=== PATIENT | male | born 1990 | race Caucasian/White ===

== ENCOUNTER 2022-07-24 13:40 | Inpatient (IN) | payer OTHER, BC, SELFPAY ==
[2022-07-24 13:55] VITALS: BMI 30.8
[2022-07-24 14:11] VITALS: BP 131/71; PULSE 65; RESP 17; TEMP 36.5; O2SAT 98
[2022-07-24] MEDS: oxyCODONE 5 MG Tablet PO ×2 (16:36→20:37)
[2022-07-24] MEDS: Gabapentin 300 MG Capsule PO (16:37)
[2022-07-24] MEDS: Acetaminophen 325 MG Tablet 650 MG PO (18:49)
[2022-07-24] MEDS: Senna/Docusate Sodium 1 Tablet 2 TABLET PO (20:38)
[2022-07-24] MEDS: Methocarbamol 750 MG Tablet 1500 MG PO (20:38)
[2022-07-24] MEDS: Enoxaparin 30 MG/0.3 ML Syringe SC (20:38)
[2022-07-24 21:18] VITALS: BP 120/67; PULSE 68; RESP 16; TEMP 36.3; O2SAT 95
[2022-07-24 21:25] VITALS: O2SAT 95
[2022-07-25] MEDS: oxyCODONE 5 MG Tablet PO ×5 (00:43→20:45)
[2022-07-25] MEDS: Methocarbamol 750 MG Tablet 1500 MG PO ×3 (05:05→22:20)
[2022-07-25 05:36] LABS: Absolute Lymphocyte Count 1.98 X10^3/uL (0.83-4.51); Absolute Neutrophil Count 4.7 X10^3/uL (2.0-7.7); Basophil# 0.03 X10^3/uL; Basophil% 0.4 % (0-1); Eosinophil# 0.12 X10^3/uL; Eosinophils% 1.5 % (0-5); Hematocrit 32.7 % (40-54); Hemoglobin 11.1 g/dL (13.0-16.5); Lymphocyte # 1.98 X10^3/ul (0.83-4.51); Lymphocyte % 24.8 % (19-41); Mean Corp Hgb Conc 33.9 g/dL (32-36); Mean Corpuscular Hgb 29.2 pg (27.0-32.0); Mean Corpuscular Volume 86.1 fL (80-94); Mean Platelet Vol. 8.2 fl (6.2-12.0); Monocyte# 0.91 X10^3/uL; Monocyte% 11.4 % (0-10); NRBC Flagged by Analyzer 0 % (0-5); Neutrophil # 4.73 X10^3/uL (2.7-7.7); Neutrophil % 59.1 % (47-70); Platelet Count 175 K/mm3 (150-450); RBC Distribution Width CV 12.5 % (11.6-14.6); RBC Distribution Width SD 38.7 fl (35.1-43.9)
[2022-07-25 06:01] LABS: ALB/GLOB Ratio 0.8 RATIO (0.9-2.4); AST(SGOT) 81 U/L (15-37); Alanine Aminotransfer ALT/SGPT 123 U/L (16-61); Albumin, Serum 2.7 g/dL (3.2-5.0); Alkaline Phosphatase 88 U/L (45-117); Anion Gap 6 (5-15); BUN 20 mg/dL (7-18); BUN/Creat Ratio 22.8 RATIO (10-20); Calcium,Total 8.6 mg/dL (8.5-10.1); Chloride 102 mmol/L (98-107); Creatinine, Serum 0.88 mg/dL (0.70-1.30); EST Glomerular Filtration Rate 107 mL/min (>60); Est Glom Filt Rate - Afr Amer 130 mL/min (>60); Globulin 3.5 g/dL (2.2-4.2); Glucose 94 mg/dL (74-106); Magnesium 2.1 mg/dL (1.6-2.6); Phosphorus 3.6 mg/dL (2.5-4.9); Potassium 3.7 mmol/L (3.5-5.1); Protein, Total 6.2 g/dL (6.4-8.2); Sodium Level 138 mmol/L (136-145)
[2022-07-25] MEDS: Senna/Docusate Sodium 1 Tablet 2 TABLET PO ×2 (07:40→20:50)
[2022-07-25] MEDS: Enoxaparin 30 MG/0.3 ML Syringe SC ×2 (07:40→20:51)
[2022-07-25] MEDS: Polyethylene Glycol 3350 17 GM PACKET PO (07:40)
[2022-07-25] MEDS: Gabapentin 300 MG Capsule PO ×3 (07:43→16:40)
[2022-07-25 07:44] VITALS: BP 159/61; PULSE 70; RESP 18; TEMP 36.4; O2SAT 96
[2022-07-25 09:13] VITALS: RESP 18
--- NOTE | 2022-07-25 12:23 | REHABEVAL_ITS ---
Admission Information Primary Diagnosis:: Debility due to traumatic injuries suffered in a 25 ft fall. Status Changes from Prescreening?: No changes Identified Actual Problem List:: Skin Intergrity, Pain, ALteration in Cmfrt, Bowel, Constipation, Mobility Impaired, Self Care Deficit, Alteration/ Air Exchange, Fluid Change-Dehydration and Alteration-Leisure Activ. Potential Problem List:: DVT, Bleeding, Infection, UTI, Aspiration, Falls, Skin Integrity and Depression Risk of Complications DVT: LMWH and CAROL Hose Bleeding: Monitor Lab Values, Nursing to Teach Precautions for anti-coagulation therapy., Wound, if applicable, to be assessed every shift. and Stroke patients assessed for lethargy or change in status. Infection: Clinical Staff to Monitor for S/S of infection: and S/S of infection include fever, redness, warmth, etc. Urinary Tract Infection: Monitor for frequency, burning, discomfort, or incontinence. and Nursing will obtain urine sample for urinalysis and C&S when ordered. Aspiration: Clinical staff will monitor for coughing, drooling, congestion., Speech will evaluate swallowing and dsyphasia. and Nursing will monitor patient swallowing during meals. Falls: Patient will be evaluated for Fall Precautions and Patient will be placed on Fall Precautions as indicated per protocol. Skin Breakdown: Nursing will assess skin daily using assessment tool. and Nursing will place on Skin Breakdown Precautions as indicated. Pain: Clinical staff will assess patient's pain level per protocol., Medications will be given, if needed, and the pain level reassessed. and Other methods: Massage, distraction, decrease stimulus, etc. used PRN. Plan of Care Patient requires physician specializing in physical medicine and rehab oversight to provide close medical supervision of rehab issues including: Pain Management, Sleep Problems, Bowel and Bladder, Medical and co-morbidity Management, DVT prophylaxis, Rehabilitation Leadership and Coordination of treatment team Patient needs Physical Therapy: For a minimum of 1 hour and At least 5 out of 7 days Patient needs Physical Therapy to improve:: Mobility, Strengthening, Transfers, Stretching, ROM, Endurance, Stairs, Gait and Balance Patient needs Occupational Therapy: For a minimum of 1 hour and At least 5 out of 7 days Patient needs Occupational Therapy to improve ADL's incl.: Eating, Grooming, Bathing, Dressing, Toileting, Toilet transfers, Community Reintegration, Higher functioning activities, Household tasks, Adaptive Equipment, Splinting and Other activities as determined Patient requires 24/7 Rehabilitation Nursing for: Pain Issues, Identifying and preventing risk factors, Monitoring and reporting current medical conditions, Assisting with ambulation, transfer, and all ADL's, Teaching patients about disease process and medications, Family teaching, Providing safe environment, Bowel and Bladder Issues, Skin integrity and Medication Management Patient needs Automobile Mechanic Motor/ Case Management for: Discharge Planning, Arranging Home Equipment or Services and Family Interventions Patient needs Dietary and Nutrition Services for: Adequate Nutrition, Nutritional Supplements and Nutritional Education Goals Patient will remain: free from falls and or injury at time of discharge. Patient will perform bed mobility at: MOD I level of assist. Patient will complete transfers from bed to chair at: MOD I level of assist. Patient will ambulate: with LRD and - (250 feet with the least restrictive device at mod I on various surfaces) Patient will complete upper body dressing at: MOD I level of assist. Patient will complete lower body dressing at: MOD I level of assist. Patient will complete toileting at: MOD I level of assist. Patient will perform bathing at: - (He will complete shower transfer on/off shower chair at contact-guard assist initially at discharge) Patient will complete grooming at: MOD I level of assist. Patient will complete home management skills at: MOD I level of assist. Patient will achieve: - (1 curb step with least restrictive device at standby assist) Patient will have pain level of: of 3 or less Patient's skin will: remain intact Patient will receive: adequate nutrition. Discharge Planning Pt Prognosis for Sig. Practical Improv. w/in Reasonable Time: Good Estimated Length of stay (days): 21 Anticipated D/C Destination: Home with Outpt Therapy Was Preadmission Assessment Accurate?: Yes
--- NOTE | 2022-07-25 12:23 | PCM.HP.STD ---
[facility] - General General Date of Admission: 07/24/22 Date of Service: 07/25/22 Chief Complaint: Debility due to multiple traumatic injuries suffered in a fall from a height of 25 feet. HPI Narrative CECILLE DORANTES, is a 31 YO M who with no significant PMH who fell from a tree stand approximately 20-25 ft above ground on 07/20/22. He was taken by [facility] to the ED at [facility] and evaluated by the Trauma service. Aubrey, per his friends, lost consciousness at the scene for a few minutes and when he awoke he was unable to feel his lower extremities. This resolved by the time he arrived at the ED. XRAYS revealed a comminuted L1 burst fracture with a large retropulsed fragment causing severe and critical spinal canal stenosis with complete loss of spinal fluid signal on the MRI. He also had fracture of the right lamina and transverse process of L1. There was a vertical split of the T12 vertebral body as well as right-sided inferior articular process of the T12 facet, lamina and transverse process. There was an epidural hematoma. Other injuries included a nondisplaced fracture of the sternum, mesenteric contusion, cortical irregularity and marrow edema involving the superior endplate of T9, superior endplate of T5 and superior endplate of T12.. He was taken to surgery on 07/21/22 for L1 corpectomy and posterior fusion of T11-12. The procedure was well tolerated and uneventful. While at [facility] Aubrey was seen by PT/OT and acute rehab was recommended. He was transferred to the acute inpt rehab unit at [facility] on 07/24/22 for 3 hours of therapy daily to restore independence/function at or near his level prior to the accident. Activity restrictions: No lifting greater than 10 to 15 pounds, avoid deep bending and/or twisting. TLSO brace PRN for comfort. All paperwork from [facility] and all of today's lab was personally reviewed. White blood cell count is within normal limits at 8 and his hemoglobin is 10.1. Platelet are within normal limits. BMP is unremarkable with the exception of an elevated BUN at 20 with a creatinine of 0.88. Bilirubin is mildly increased at 1.5 and the AST and ALT are increased at 81 and 123 respectively. Alkaline phosphatase is normal. Phosphorus and magnesium are normal. Nursing reports that he is requesting a change in pain management. He tells me that the Oxycodone 10 mg is not lasting 4 hours and he starts having increased pain an about 3 hours after the dose. We discussed using a low dose Oxycontin for continuous pain relief and continuing 10 mg Oxycodone every 4 H PRN for breakthrough pain and he is agreeable. [facility] Medical History Burst fracture of lumbar vertebra Conus medullaris syndrome Sternal fracture Medical History no medical history Home Medications enoxaparin 30 mg/0.3 mL subcutaneous solution 30 mg subcut BID Check with primary doctor 07/24/22 [History Last Taken Unknown] gabapentin 300 mg capsule 300 mg PO TID nerve pain 07/24/22 [History Last Taken Unknown] methocarbamol 750 mg tablet 1,500 mg PO TID muscle spasm 07/24/22 [History Last Taken Unknown] ondansetron HCl 4 mg tablet 4 mg PO Q8H PRN nausea/vomiting 07/24/22 [History Last Taken Unknown] oxycodone 5 mg tablet 5 - 10 mg PO Q4H PRN Pain 07/24/22 [History Last Taken Unknown] Allergy/AdvReac Type Severity Reaction Status Date / Time No Known Allergies Allergy Verified 07/24/22 14:02 Family History no significant family his no significant family history Surgical History S/P lumbar fusion Status post lumbar spine surgery for decompression of spinal cord Social History (Updated 07/25/22 @ 18:[address] Celeste Plata DO) household members: spouse and children housing: house number of children: 2 current occupational status: employed Smoking Status: Former smoker how long ago did patient quit smokin months ago....was down to 2-3 a day and now has no cravings or desire alcohol intake: current details: social substance use type: does not use ROS ROS Narrative alert, pleasant, appropriate, good eye contact. Constitutional Constitutional: Reports difficulty sleeping and weakness; Denies anorexia, change in weight, chills, fatigue, fever(s) or night sweats Eyes Eyes: Denies blurry vision, change in vision, eye pain or loss of vision ENT HEENT: Denies abnormal hearing, dysphagia, headache(s), hearing loss, nasal congestion or sore throat Cardiovascular Cardiovascular: Reports chest pain and other Details: he has a fractured sternum and has pain with deep inspiration ; Denies dyspnea on exertion, edema, lightheadedness, orthopnea, palpitations, paroxysmal nocturnal dyspnea or syncope Respiratory/Chest Respiratory/Chest: Denies cough, dyspnea, shortness of breath at rest, shortness of breath with exertion or wheezing Gastrointestinal Gastrointestinal: Reports constipation; Denies abdominal pain, diarrhea, dyspepsia, hematemesis, hematochezia, nausea or vomiting Genitourinary Genitourinary: Reports other Details: strong, dark urine due to dehydration ; Denies dysuria, hematuria, nocturia, urinary frequency, urinary hesitancy, urinary incontinence or urinary urgency Musculoskeletal Musculoskeletal: Reports abnormal gait, back pain, difficulty walking, muscle cramps and myalgias; Denies joint pain, joint swelling or neck pain Neurologic Neurologic: Denies confusion, disequilibrium, dizziness, focal weakness, headache(s), paresthesias, seizures or tremor(s) Psychiatric Psychiatric: Denies anxiety, depression, homicidal ideation or suicidal ideation Endocrine Endocrinology: Denies change in body appearance, polydipsia or polyuria Hematologic/Lymphatic Hematologic/Lymphatic: Denies easy bleeding, easy bruising or lymphadenopathy Allergic/Immunologic Allergic/Immunologic: Denies rhinitis, eczemia or asthma Vital Signs Vital Signs Vital Signs: 07/24/22 14:11 07/24/22 15:18 07/24/22 17:05 Temperature 97.7 F L Temperature Source Temporal Pulse Rate 65 Pulse Strength Normal (2+) Respiratory Rate 17 Respiratory Effort Respiratory Depth Respiratory Pattern Blood Pressure 131/71 H Blood Pressure Mean 91 Blood Pressure Source Monitor Blood Pressure Position Semi-Fowlers Blood Pressure Location Right Arm Pulse Ox 98 Oxygen Delivery Method Room Air Room Air 07/24/22 21:18 07/24/22 21:39 07/24/22 21:25 Temperature 97.4 F L Temperature Source Temporal Pulse Rate 68 Pulse Strength Normal (2+) Respiratory Rate 16 Respiratory Effort Normal Non-Labored Respiratory Depth Normal Respiratory Pattern Normal Blood Pressure 120/67 Blood Pressure Mean 84 Blood Pressure Source Monitor Blood Pressure Position Semi-Fowlers Blood Pressure Location Right Arm Pulse Ox 95 95 Oxygen Delivery Method Room Air Room Air 07/25/22 07:44 07/25/22 09:13 Temperature 97.6 F L Temperature Source Temporal Pulse Rate 70 Pulse Strength Respiratory Rate 18 18 Respiratory Effort Normal Non-Labored Respiratory Depth Normal Respiratory Pattern Normal Blood Pressure 159/61 H Blood Pressure Mean 93 Blood Pressure Source Manual Blood Pressure Position Semi-Fowlers Blood Pressure Location Right Arm Pulse Ox 96 Oxygen Delivery Method Room Air Room Air Weight Weight: 227 lb 4.745 oz Body Mass Index (BMI) 30.8 Physical Exam Const alert, oriented x3, no apparent distress, average body habitus and well nourished Constitutional Narrative: Making good eye contact, appropriate General Appearance: cooperative, well kempt and well developed HEENT normocephalic, head/scalp atraumatic, hearing grossly normal bilaterally, external ears normal and external nose normal HEENT Narrative: Dry mucous membranes. Mouth: tongue normal, dry mucous membranes, No malodorous breath, No thrush and No trismus Eyes PERRL, EOMs intact bilaterally, conjunctivae normal and no scleral icterus Neck No nuchal rigidity, no lymphadenopathy, supple, no JVD and no carotid bruits General: trachea midline Chest Chest Narrative: some soreness to palpation over the sternum and with deep breaths. Resp normal respiratory effort, no use of accessory muscles and clear to auscultation bilaterally Resp Narrative: Not tachypneic and no conversational dyspnea. Has coarse crackles in the bases initially with deep breaths. Reminded him we want him to do 10 breaths an hour while awake. I told him he could hold a pillow against the chest wall when taking deep breaths and getting out of bed to help with the pain. Effort and Inspection: able to speak in complete sentences and symmetric chest movement Cardio regular rate, regular rhythm, S1 normal heart sound, S2 normal heart sound, no murmurs, no rub and no gallops Cardio Narrative: No ectopy GI normal to inspection, nondistended, normoactive bowel sounds and non-tender GI Narrative: No guarding with palpation. Back/Spine Back/Spine Narrative: dressing is in place and not to be removed yet. No fresh blood on the dressing and it is dry. There is no erythema around the dressing. Extremity normal capillary refill, no clubbing, cyanosis or edema and no calf tenderness Skin Skin Narrative: No rashes, no skin breakdown. Few bruises and abrasions. Neuro oriented x3, CN's II-XII intact bilaterally and moves all extremities Neuro Narrative: denies numbness or burning in his feet and longer Psych affect normal Psych Narrative: Appropriate, making good eye contact. Able to stay on topic and focus. No flight of ideas. Does not appear anxious or depressed. Conversant and relating well to staff. Results Lab / Micro Data Result Diagrams: 07/25/22 05:29 07/25/22 05:29 Labs: Laboratory Results - last 24 hr 07/25/22 05:29: WBC 8.0, RBC 3.80 L, Hgb 11.1 L, Hct 32.7 L, MCV 86.1, MCH 29.2, MCHC 33.9, RDW Std Deviation 38.7, RDW Coeff of Diane 12.5, Plt Count 175, MPV 8.2, Immature Gran % (Auto) 2.800 H, Neut % (Auto) 59.1, Lymph % (Auto) 24.8, [place] % (Auto) 11.4 H, Eos % (Auto) 1.5, Baso % (Auto) 0.4, Absolute Neuts (auto) 4.7, Absolute Lymphs (auto) 1.98, Nucleated RBC % 0 07/25/22 05:29: Sodium 138, Potassium 3.7, Chloride 102, Carbon Dioxide 30.0, Anion Gap 6, BUN 20 H, Creatinine 0.88, Estim Creat Clear Calc 133.50, Est GFR (MDRD) Af Amer 130, Est GFR (MDRD) Non-Af 107, BUN/Creatinine Ratio 22.8 H, Glucose 94, Calcium 8.6, Phosphorus 3.6, Magnesium 2.1, Total Bilirubin 1.50 H, AST 81 H, ALT 123 H, Alkaline Phosphatase 88, Total Protein 6.2 L, Albumin 2.7 L, Globulin 3.5, Albumin/Globulin Ratio 0.8 L Assessment & Plan Assessment/Plan (1) Physical debility: (2) Fall: (3) Burst fracture of lumbar vertebra: (4) Sternal fracture: (5) Conus medullaris syndrome: (6) Thoracic vertebral fracture: (7) Lumbar canal stenosis: (8) Status post lumbar spine surgery for decompression of spinal cord: (9) Fusion of lumbar spine: (10) Acute blood loss anemia: (11) Constipation: (12) Dehydration: PLAN: Plan PLAN PT for gait stability OT for ADL's Analgesics as needed Bowel protocol Fall precautions Assess for Anxiety/Depression GI prophylaxis not necessary at this time. He has no complaints of epigastric pain, nausea, vomiting or bloating. No history of peptic ulcer disease. DVT prophylaxis with Lovenox 30 mg SQ every 12 hours Follow up with neurosurgeon and PCP following DC from IP Rehab AM lab including CMP, CBC, Mag and Phos all personally reviewed. Hydrate with IV NS overnight - total of 3 liters IS for 10 breaths every 1 Hour while awake Start Oxycontin 10 mg PO BID for better pain control.......he is doing much more therapy (3 hours now) than he had at the [facility]. Continue oxycodone 10 mg p.o. every 4 hours as needed for breakthrough pain. Continue stool softeners. He had a laxative today and hydrating him tonight should help with his constipation. He does now feel that he may have a bowel movement shortly. He will need a primary care physician to follow-up with post discharge. Unit Exclusion This patient is an acute care inpatient being housed in the excluded unit because of capacity issues related to the disaster or emergency.: Yes Charges/Coding Visit Charges Inpatient E&M: 18169 Init Hosp L2
[2022-07-25] MEDS: oxyCODONE HCl Cr 10 MG Tablet PO ×2 (13:02→22:20)
[2022-07-25] MEDS: Magnesium Hydroxide 30 ML UDC PO (14:30)
[2022-07-25] MEDS: Acetaminophen 325 MG Tablet 650 MG PO (20:15)
[2022-07-25 20:20] VITALS: BP 117/61; PULSE 86; RESP 20; TEMP 36.3; O2SAT 98
[2022-07-25] MEDS: 0.9% Normal Saline 1,000 ML 500 ML IV (20:32)
[2022-07-25 22:15] VITALS: PULSE 68; RESP 16; O2SAT 95
[2022-07-25] MEDS: 0.9% Normal Saline 1,000 ML 200 ML IV (22:43)
[2022-07-26] MEDS: oxyCODONE 5 MG Tablet PO ×5 (01:49→19:46)
[2022-07-26] MEDS: 0.9% Normal Saline 1,000 ML 200 ML IV (03:50)
[2022-07-26] MEDS: Methocarbamol 750 MG Tablet 1500 MG PO ×3 (05:41→20:49)
[2022-07-26] MEDS: Bisacodyl 10 MG Suppository RC (05:42)
[2022-07-26] MEDS: Acetaminophen 325 MG Tablet 650 MG PO ×2 (05:52→22:07)
[2022-07-26] MEDS: Enoxaparin 30 MG/0.3 ML Syringe SC ×2 (07:59→20:49)
[2022-07-26] MEDS: Senna/Docusate Sodium 1 Tablet 2 TABLET PO ×2 (07:59→20:49)
[2022-07-26] MEDS: Polyethylene Glycol 3350 17 GM PACKET PO (07:59)
[2022-07-26] MEDS: Gabapentin 300 MG Capsule PO ×3 (07:59→17:27)
[2022-07-26] MEDS: oxyCODONE HCl Cr 10 MG Tablet PO ×2 (09:04→22:07)
[2022-07-26 09:36] VITALS: BP 101/59; PULSE 74; RESP 16; TEMP 36.8; O2SAT 97
[2022-07-26 10:00] VITALS: RESP 18
--- NOTE | 2022-07-26 15:54 | NURSING ---
Soap suds administered with positive results
--- NOTE | 2022-07-26 16:33 | CASEMGMT ---
Social Work Met with patient to complete initial assessment. Educ[facility] to [facility] 07/31 and continued stay is not guaranteed with each review. Educated to TEAM meetings. 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 Explored support systems for pt at [place]. Pt states his parents and siblings all work and [place] the same [place] and are very close in relationship. All family members are able to assist pt and /family at home. SW encouraged pt to contact employer HR to discuss FMLA/PTO/STD, etc. Pt stated he is the breadwinner and without paycheck from his job, family with struggle financially. SW offered to assist with financial assistance. Pt appreciative. SW to follow for [place] plans and support. Sarah Lugo, JENY EDLERW
[2022-07-26 19:39] VITALS: BP 112/55; PULSE 79; RESP 20; TEMP 36.2; O2SAT 95
[2022-07-26 20:50] VITALS: O2SAT 97
[2022-07-27] MEDS: oxyCODONE 5 MG Tablet PO ×5 (03:14→22:06)
[2022-07-27] MEDS: Methocarbamol 750 MG Tablet 1500 MG PO ×3 (05:57→21:02)
[2022-07-27] MEDS: Senna/Docusate Sodium 1 Tablet 2 TABLET PO ×2 (07:54→21:02)
[2022-07-27] MEDS: Polyethylene Glycol 3350 17 GM PACKET PO (07:54)
[2022-07-27] MEDS: Gabapentin 300 MG Capsule PO ×3 (07:54→17:30)
[2022-07-27 07:58] VITALS: BP 113/65; PULSE 64; RESP 16; TEMP 36.3; O2SAT 97
[2022-07-27] MEDS: Enoxaparin 30 MG/0.3 ML Syringe SC ×2 (09:39→21:02)
[2022-07-27] MEDS: oxyCODONE HCl Cr 10 MG Tablet PO ×2 (09:39→21:01)
[2022-07-27 19:21] VITALS: BP 137/59; PULSE 87; RESP 16; TEMP 36.6; O2SAT 97
[2022-07-27 22:00] VITALS: PULSE 85; RESP 16; O2SAT 96
[2022-07-28] MEDS: oxyCODONE 5 MG Tablet PO ×5 (02:06→22:04)
--- NOTE | 2022-07-28 02:13 | NURSING ---
PRN Oxyir provided for 04/05 back pain @ 02:06.
[2022-07-28] MEDS: Methocarbamol 750 MG Tablet 1500 MG PO ×3 (06:07→21:02)
[2022-07-28 07:21] VITALS: BP 113/61; PULSE 82; RESP 15; TEMP 36.6; O2SAT 96
[2022-07-28] MEDS: Polyethylene Glycol 3350 17 GM PACKET PO (08:15)
[2022-07-28] MEDS: Senna/Docusate Sodium 1 Tablet 2 TABLET PO ×2 (08:15→21:02)
[2022-07-28] MEDS: Gabapentin 300 MG Capsule PO ×3 (08:15→17:13)
[2022-07-28] MEDS: Hydrocortisone 2.5% Crm 1 APPLIC TOPICAL ×2 (10:08→20:24)
[2022-07-28] MEDS: oxyCODONE HCl Cr 10 MG Tablet PO ×2 (10:08→21:01)
[2022-07-28] MEDS: Enoxaparin 30 MG/0.3 ML Syringe SC ×2 (10:08→21:02)
[2022-07-28 19:03] VITALS: BP 119/75; PULSE 94; RESP 16; TEMP 36.8; O2SAT 97
[2022-07-28 21:17] VITALS: PULSE 81; RESP 16; O2SAT 95
[2022-07-29] MEDS: oxyCODONE 5 MG Tablet PO ×5 (02:04→22:23)
[2022-07-29] MEDS: Methocarbamol 750 MG Tablet 1500 MG PO ×3 (05:59→21:09)
[2022-07-29 07:17] VITALS: BP 113/64; PULSE 77; RESP 16; TEMP 36.7; O2SAT 97
[2022-07-29] MEDS: Hydrocortisone 2.5% Crm 1 APPLIC TOPICAL ×2 (07:31→19:03)
[2022-07-29] MEDS: Gabapentin 300 MG Capsule PO ×3 (07:46→16:46)
--- NOTE | 2022-07-29 08:40 | PN_ITS ---
Subjective Subjective Patient seen, examined on team rounds. Parents present, Pain is better controlled, he has no new problems, concerns, issues, complaints. Objective Data Objective Data Vital Signs: Vital Signs Temp Pulse Resp BP Pulse Ox O2 Del Method 98.0 F 77 16 113/64 97 Room Air 07/29/22 07:17 07/29/22 07:17 07/29/22 07:17 07/29/22 07:17 07/29/22 07:17 07/29/22 07:17 Oxygen Delivery Method Room Air Weight: 105.4 kg Body Mass Index (BMI) 30.8 Intake & Output: Intake and Output for Last 24 Hours 07/27/22 07/28/22 07/29/22 23:59 23:59 23:59 Intake Total 600 / 600 240 / 240 800 / 800 Output Total 300 / 300 750 / 750 Balance 600 / 600 -60 / -60 50 / 50 Lab / Micro Data Result Diagrams: 07/25/22 05:29 07/25/22 05:29 Physical Exam Const alert General Appearance: cooperative HEENT normocephalic Eyes PERRL and EOMs intact bilaterally Neck supple, no JVD and no carotid bruits Resp normal respiratory effort, normal air movement and clear to auscultation bilaterally Cardio regular rate and regular rhythm Cardio Narrative: Back brace. GI normal to inspection, nondistended, normoactive bowel sounds, non-tender and non-distended Extremity normal capillary refill General Extremity: Negative for edema Skin no rashes or lesions noted General Skin Exam: no breakdown Psych affect normal Appearance: appropriate Assessment & Plan Assessment/Plan (1) Debility: (2) Status post lumbar spine surgery for decompression of spinal cord: (3) Thoracic vertebral fracture: (4) Sternal fracture: (5) Burst fracture of lumbar vertebra: (6) Neuropathic pain: (7) Muscle spasm: (8) Nausea: (9) Constipation: PLAN: Plan 31 year old male with below past medical history hospitalized for fall, multi trauma, admitted to for greater than 3 hours rehabilitation, strengthening, prior to discharge home with . * Debility - PT/OT. * Pain - Tylenol 650mg q6h prn, Oxycontin 10mg bid, Oxycodone 5-10mg q4h prn. * Bowel - Miralax 17gm daily, Senna/colace 2 tablets bid, Dulcolax 10mg pr x 1 prn, MOM 30ml po x 1 prn. * DVT prophylaxis - Lovenox 30mg sc bid. * Neuropathic pain - Gabapentin 300mg tidcm. * Rash - HC cream topical tid prn. * Muscle spasm - Robaxin 1500mg tid. * Nausea - Zofran 4mg q8h prn. Capacity Capacity Assessment Tool Can the patient make a choice & communicate that choice?: Yes Can the patient understand benefits, risks and alternatives?: Yes Can the patient make a logical, rational choice?: Yes Is the choice the patient makes consistent w/ their values?: Yes Is there an impending, emergent risk to the patient?: No Does the patient have an Advance Directive?: No Is there a Surrogate Available?: Yes i.e. HCPOA: Yes i.e. close relative (spouse, child, parent, sibling)?: Yes
--- NOTE | 2022-07-29 09:48 | CASEMGMT ---
Social Work IDT met with patient, mother and father, and via conference call for Team meeting. Discussed patient's progress in PT/OT/SN. Educated to [employer] insurance with [employer] 07/31 and continued stay is not guaranteed. Pts goal is to return home with and two small children close to PLOF. Family is committed to support pt at home. However, IDT recommends pt remain for intensive therapy for best change of recovery. Discussed DC needs. Pt would continue with outpatient therapy. SW to order any DME needed. SW offered to assist with paperwork from employer if needed. SW to continue to follow for DC planning and support. Will ReTeam next week. JENY SinghW
[2022-07-29] MEDS: Enoxaparin 30 MG/0.3 ML Syringe SC ×2 (10:06→21:08)
[2022-07-29] MEDS: Polyethylene Glycol 3350 17 GM PACKET PO (10:06)
[2022-07-29] MEDS: Senna/Docusate Sodium 1 Tablet 2 TABLET PO ×2 (10:06→21:07)
[2022-07-29] MEDS: oxyCODONE HCl Cr 10 MG Tablet PO ×2 (10:07→21:07)
[2022-07-29 19:02] VITALS: BP 120/72; PULSE 100; RESP 18; TEMP 36.6; O2SAT 99
[2022-07-29 20:11] VITALS: PULSE 90; RESP 16; O2SAT 96
[2022-07-30] MEDS: oxyCODONE 5 MG Tablet PO ×5 (02:29→23:17)
[2022-07-30] MEDS: Methocarbamol 750 MG Tablet 1500 MG PO ×3 (05:15→21:13)
[2022-07-30] MEDS: Hydrocortisone 2.5% Crm 1 APPLIC TOPICAL ×2 (05:27→21:13)
[2022-07-30 07:35] VITALS: BP 113/62; PULSE 79; RESP 16; TEMP 36.4; O2SAT 100
--- NOTE | 2022-07-30 08:27 | PN_ITS ---
Subjective Subjective Patient seen, examined. Last night, his Lovenox injection caused pain, radiating pain, and inhibited his sleep. I let him know I cut back his Lovenox to once daily, he otherwise is in good spirits, progressing quickly with therapy. Objective Data Objective Data Vital Signs: Vital Signs Temp Pulse Resp BP Pulse Ox O2 Del Method 97.5 F L 79 16 113/62 100 Room Air 07/30/22 07:35 07/30/22 07:35 07/30/22 07:35 07/30/22 07:35 07/30/22 07:35 07/30/22 07:35 Oxygen Delivery Method Room Air Weight: 105.4 kg Body Mass Index (BMI) 30.8 Intake & Output: Intake and Output for Last 24 Hours 07/28/22 07/29/22 07/30/22 23:59 23:59 23:59 Intake Total 240 / 240 1100 / 1100 600 / 600 Output Total 300 / 300 1150 / 1150 300 / 300 Balance -60 / -60 -50 / -50 300 / 300 Lab / Micro Data Result Diagrams: 07/25/22 05:29 07/25/22 05:29 Physical Exam Const alert General Appearance: cooperative HEENT normocephalic Eyes PERRL and EOMs intact bilaterally Neck supple, no JVD and no carotid bruits Resp normal respiratory effort, normal air movement and clear to auscultation bilaterally Cardio regular rate and regular rhythm Cardio Narrative: Back brace. GI normal to inspection, nondistended, normoactive bowel sounds, non-tender and non-distended Extremity normal capillary refill General Extremity: Negative for edema Skin no rashes or lesions noted General Skin Exam: no breakdown Psych affect normal Appearance: appropriate Assessment & Plan Assessment/Plan (1) Debility: (2) Status post lumbar spine surgery for decompression of spinal cord: (3) Thoracic vertebral fracture: (4) Sternal fracture: (5) Burst fracture of lumbar vertebra: (6) Neuropathic pain: (7) Muscle spasm: (8) Nausea: (9) Constipation: PLAN: Plan 31 year old male with below past medical history hospitalized for fall, multi trauma, admitted to for greater than 3 hours rehabilitation, strengthening, prior to discharge home with . * Debility - PT/OT. * Pain - Tylenol 650mg q6h prn, Oxycontin 10mg bid, Oxycodone 5-10mg q4h prn. * Bowel - Miralax 17gm daily, Senna/colace 2 tablets bid, Dulcolax 10mg pr x 1 prn, MOM 30ml po x 1 prn. * DVT prophylaxis - Lovenox 30mg daily. * Neuropathic pain - Gabapentin 300mg tidcm. * Rash - HC cream topical tid prn. * Muscle spasm - Robaxin 1500mg tid. * Nausea - Zofran 4mg q8h prn. Capacity Capacity Assessment Tool Can the patient make a choice & communicate that choice?: Yes Can the patient understand benefits, risks and alternatives?: Yes Can the patient make a logical, rational choice?: Yes Is the choice the patient makes consistent w/ their values?: Yes Is there an impending, emergent risk to the patient?: No Does the patient have an Advance Directive?: No Is there a Surrogate Available?: Yes i.e. HCPOA: Yes i.e. close relative (spouse, child, parent, sibling)?: Yes
[2022-07-30] MEDS: Gabapentin 300 MG Capsule PO ×3 (08:46→17:33)
[2022-07-30] MEDS: Senna/Docusate Sodium 1 Tablet 2 TABLET PO ×2 (08:46→21:15)
[2022-07-30] MEDS: Polyethylene Glycol 3350 17 GM PACKET PO (08:47)
[2022-07-30] MEDS: Enoxaparin 30 MG/0.3 ML Syringe SC (08:58)
[2022-07-30] MEDS: oxyCODONE HCl Cr 10 MG Tablet PO ×2 (10:27→21:13)
[2022-07-30 19:11] VITALS: BP 130/67; PULSE 87; RESP 16; TEMP 36.5; O2SAT 96
[2022-07-30 20:41] VITALS: PULSE 85; RESP 16; O2SAT 98
[2022-07-31] MEDS: oxyCODONE 5 MG Tablet PO ×3 (04:14→18:27)
[2022-07-31] MEDS: Methocarbamol 750 MG Tablet 1500 MG PO ×3 (05:19→20:33)
[2022-07-31 07:27] VITALS: BP 105/50; PULSE 72; RESP 16; TEMP 36.2; O2SAT 97
[2022-07-31] MEDS: Senna/Docusate Sodium 1 Tablet 2 TABLET PO ×2 (07:49→20:33)
[2022-07-31] MEDS: Enoxaparin 30 MG/0.3 ML Syringe SC (07:50)
[2022-07-31] MEDS: Gabapentin 300 MG Capsule PO ×3 (07:50→16:38)
[2022-07-31] MEDS: Polyethylene Glycol 3350 17 GM PACKET PO (07:50)
--- NOTE | 2022-07-31 08:34 | PN_ITS ---
Subjective Subjective Patient seen, examined. He has no new problems, concerns, issues, complaints. He continues to progress with therapy. He is in good spirits. Objective Data Objective Data Vital Signs: Vital Signs Temp Pulse Resp BP Pulse Ox O2 Del Method 97.2 F L 72 16 105/50 L 97 Room Air 07/31/22 07:27 07/31/22 07:27 07/31/22 07:27 07/31/22 07:27 07/31/22 07:27 07/31/22 07:27 Oxygen Delivery Method Room Air Weight: 105.4 kg Body Mass Index (BMI) 30.8 Intake & Output: Intake and Output for Last 24 Hours 07/29/22 07/30/22 07/31/22 23:59 23:59 23:59 Intake Total 1100 / 1100 1200 / 1200 Output Total 1150 / 1150 675 / 675 Balance -50 / -50 525 / 525 Lab / Micro Data Result Diagrams: 07/25/22 05:29 07/25/22 05:29 Physical Exam Const alert General Appearance: cooperative HEENT normocephalic Eyes PERRL and EOMs intact bilaterally Neck supple, no JVD and no carotid bruits Resp normal respiratory effort, normal air movement and clear to auscultation bilaterally Cardio regular rate and regular rhythm Cardio Narrative: Back brace. GI normal to inspection, nondistended, normoactive bowel sounds, non-tender and non-distended Extremity normal capillary refill General Extremity: Negative for edema Skin no rashes or lesions noted General Skin Exam: no breakdown Psych affect normal Appearance: appropriate Assessment & Plan Assessment/Plan (1) Debility: (2) Status post lumbar spine surgery for decompression of spinal cord: (3) Thoracic vertebral fracture: (4) Sternal fracture: (5) Burst fracture of lumbar vertebra: (6) Neuropathic pain: (7) Muscle spasm: (8) Nausea: (9) Constipation: PLAN: Plan 31 year old male with below past medical history hospitalized for fall, multi trauma, admitted to for greater than 3 hours rehabilitation, strengthening, prior to discharge home with . * Debility - PT/OT. * Pain - Tylenol 650mg q6h prn, Oxycontin 10mg bid, Oxycodone 5-10mg q4h prn. * Bowel - Miralax 17gm daily, Senna/colace 2 tablets bid, Dulcolax 10mg pr x 1 prn, MOM 30ml po x 1 prn. * DVT prophylaxis - Lovenox 30mg daily. * Neuropathic pain - Gabapentin 300mg tidcm. * Rash - HC cream topical tid prn. * Muscle spasm - Robaxin 1500mg tid. * Nausea - Zofran 4mg q8h prn. Capacity Capacity Assessment Tool Can the patient make a choice & communicate that choice?: Yes Can the patient understand benefits, risks and alternatives?: Yes Can the patient make a logical, rational choice?: Yes Is the choice the patient makes consistent w/ their values?: Yes Is there an impending, emergent risk to the patient?: No Does the patient have an Advance Directive?: No Is there a Surrogate Available?: Yes i.e. HCPOA: Yes i.e. close relative (spouse, child, parent, sibling)?: Yes
[2022-07-31] MEDS: oxyCODONE HCl Cr 10 MG Tablet PO ×2 (10:12→22:05)
[2022-07-31 19:23] VITALS: BP 105/56; PULSE 89; RESP 16; TEMP 37.1; O2SAT 95
[2022-07-31 22:00] VITALS: O2SAT 98
[2022-08-01] MEDS: oxyCODONE 5 MG Tablet PO ×4 (02:07→17:10)
[2022-08-01] MEDS: Methocarbamol 750 MG Tablet 1500 MG PO ×3 (06:08→20:49)
[2022-08-01 07:30] VITALS: BP 110/65; PULSE 69; RESP 18; TEMP 36; O2SAT 97
[2022-08-01] MEDS: Polyethylene Glycol 3350 17 GM PACKET PO (07:31)
[2022-08-01] MEDS: Senna/Docusate Sodium 1 Tablet 2 TABLET PO ×2 (07:31→20:49)
[2022-08-01] MEDS: Gabapentin 300 MG Capsule PO ×3 (07:31→17:08)
[2022-08-01] MEDS: Enoxaparin 30 MG/0.3 ML Syringe SC (07:31)
[2022-08-01] MEDS: oxyCODONE HCl Cr 10 MG Tablet PO ×2 (10:11→21:48)
--- NOTE | 2022-08-01 11:32 | CASEMGMT ---
Social Work Updated pt that insurance approved with [employer] 08/07. Assisted pt with completing short term disability application from employer. Sarah Lugo, [employer]
[2022-08-01 19:06] VITALS: BP 123/64; PULSE 80; RESP 16; TEMP 36.7; O2SAT 99
[2022-08-02] MEDS: oxyCODONE 5 MG Tablet PO ×4 (02:11→16:55)
[2022-08-02] MEDS: Methocarbamol 750 MG Tablet 1500 MG PO ×3 (06:10→22:05)
[2022-08-02 07:48] VITALS: BP 104/51; PULSE 84; RESP 16; TEMP 36.3; O2SAT 97
[2022-08-02] MEDS: Hydrocortisone 2.5% Crm 1 APPLIC TOPICAL (08:07)
[2022-08-02] MEDS: Senna/Docusate Sodium 1 Tablet 2 TABLET PO ×2 (08:08→22:05)
[2022-08-02] MEDS: Enoxaparin 30 MG/0.3 ML Syringe SC (08:08)
[2022-08-02] MEDS: Gabapentin 300 MG Capsule PO ×3 (08:08→16:55)
--- NOTE | 2022-08-02 08:40 | PN_ITS ---
Subjective Subjective Patient seen, and examined. Sternal pain improving slowly, back pain improving slowly. He feels the pain medications are adequate, he is making progress with therapy. Objective Data Objective Data Vital Signs: Vital Signs Temp Pulse Resp BP Pulse Ox O2 Del Method 97.3 F L 84 16 104/51 L 97 Room Air 08/02/22 07:48 08/02/22 07:48 08/02/22 07:48 08/02/22 07:48 08/02/22 07:48 08/02/22 07:48 Oxygen Delivery Method Room Air Weight: 100.2 kg Body Mass Index (BMI) 30.8 Intake & Output: Intake and Output for Last 24 Hours 07/31/22 08/01/22 08/02/22 23:59 23:59 23:59 Intake Total 1340 / 1340 360 / 360 Balance 1340 / 1340 360 / 360 Lab / Micro Data Result Diagrams: 07/25/22 05:29 07/25/22 05:29 Physical Exam Const alert General Appearance: cooperative HEENT normocephalic Eyes PERRL and EOMs intact bilaterally Neck supple, no JVD and no carotid bruits Resp normal respiratory effort, normal air movement and clear to auscultation bilaterally Cardio regular rate and regular rhythm Cardio Narrative: Back brace. GI normal to inspection, nondistended, normoactive bowel sounds, non-tender and non-distended Extremity normal capillary refill General Extremity: Negative for edema Skin no rashes or lesions noted General Skin Exam: no breakdown Psych affect normal Appearance: appropriate Assessment & Plan Assessment/Plan (1) Debility: (2) Status post lumbar spine surgery for decompression of spinal cord: (3) Thoracic vertebral fracture: (4) Sternal fracture: (5) Burst fracture of lumbar vertebra: (6) Neuropathic pain: (7) Muscle spasm: (8) Nausea: (9) Constipation: PLAN: Plan 31 year old male with below past medical history hospitalized for fall, multi trauma, admitted to for greater than 3 hours rehabilitation, strengthening, prior to discharge home with . * Debility - PT/OT. * Pain - Tylenol 650mg q6h prn, Oxycontin 10mg bid, Oxycodone 5-10mg q4h prn. * Bowel - Miralax 17gm daily, Senna/colace 2 tablets bid, Dulcolax 10mg pr x 1 prn, MOM 30ml po x 1 prn. * DVT prophylaxis - Lovenox 30mg daily. * Neuropathic pain - Gabapentin 300mg tidcm. * Rash - HC cream topical tid prn. * Muscle spasm - Robaxin 1500mg tid. * Nausea - Zofran 4mg q8h prn. Capacity Capacity Assessment Tool Can the patient make a choice & communicate that choice?: Yes Can the patient understand benefits, risks and alternatives?: Yes Can the patient make a logical, rational choice?: Yes Is the choice the patient makes consistent w/ their values?: Yes Is there an impending, emergent risk to the patient?: No Does the patient have an Advance Directive?: No Is there a Surrogate Available?: Yes i.e. HCPOA: Yes i.e. close relative (spouse, child, parent, sibling)?: Yes
[2022-08-02] MEDS: oxyCODONE HCl Cr 10 MG Tablet PO ×2 (09:24→22:06)
[2022-08-02 19:55] VITALS: BP 137/71; PULSE 89; RESP 16; TEMP 36.8; O2SAT 98
[2022-08-03] MEDS: oxyCODONE 5 MG Tablet PO ×4 (02:08→18:32)
[2022-08-03] MEDS: Methocarbamol 750 MG Tablet 1500 MG PO ×3 (06:06→20:53)
[2022-08-03] MEDS: Hydrocortisone 2.5% Crm 1 APPLIC TOPICAL (06:06)
[2022-08-03 07:43] VITALS: BP 112/61; PULSE 73; RESP 16; TEMP 36.7; O2SAT 97
[2022-08-03] MEDS: Gabapentin 300 MG Capsule PO ×3 (07:58→16:42)
[2022-08-03] MEDS: Senna/Docusate Sodium 1 Tablet 2 TABLET PO ×2 (10:03→20:53)
[2022-08-03] MEDS: oxyCODONE HCl Cr 10 MG Tablet PO ×2 (10:03→22:18)
[2022-08-03] MEDS: Enoxaparin 30 MG/0.3 ML Syringe SC (10:06)
[2022-08-03 20:45] VITALS: O2SAT 96
[2022-08-03 20:56] VITALS: BP 119/70; PULSE 87; RESP 18; TEMP 36.3; O2SAT 96
[2022-08-04] MEDS: oxyCODONE 5 MG Tablet PO ×4 (02:02→18:05)
[2022-08-04] MEDS: Methocarbamol 750 MG Tablet 1500 MG PO ×3 (05:58→20:16)
[2022-08-04] MEDS: Gabapentin 300 MG Capsule PO ×3 (08:04→16:51)
[2022-08-04 08:12] VITALS: BP 122/68; PULSE 65; RESP 16; TEMP 36.5; O2SAT 97
[2022-08-04] MEDS: oxyCODONE HCl Cr 10 MG Tablet PO ×2 (10:03→21:58)
[2022-08-04] MEDS: Senna/Docusate Sodium 1 Tablet 2 TABLET PO ×2 (10:04→20:16)
[2022-08-04] MEDS: Enoxaparin 30 MG/0.3 ML Syringe SC (10:04)
[2022-08-04] MEDS: Acetaminophen 325 MG Tablet 650 MG PO ×2 (13:56→20:15)
[2022-08-04 20:20] VITALS: O2SAT 97
[2022-08-04 20:49] VITALS: BP 129/81; PULSE 94; RESP 18; TEMP 36.2; O2SAT 97
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
[2022-08-05] MEDS: oxyCODONE 5 MG Tablet PO ×5 (02:00→22:13)
[2022-08-05] MEDS: Methocarbamol 750 MG Tablet 1500 MG PO ×3 (05:58→21:10)
[2022-08-05] MEDS: Acetaminophen 325 MG Tablet 650 MG PO (06:00)
[2022-08-05 07:21] VITALS: BP 125/62; PULSE 76; RESP 18; TEMP 36.6; O2SAT 96
--- NOTE | 2022-08-05 08:26 | CASEMGMT ---
Social Work IDT met with patient, parents and via conference call for Team meeting. Discussed patient's progress in PT/OT/SN. Educated to [employer] insurance with [employer] 08/07 and continued stay is not guaranteed. Pts goal remains to DC home with and family support with highest level of function. Discussed goals for independence at home. PT/OT to work on bed mobility independence, etc. Discussed DME needs - FWW, bedside rail or hospital bed, 3-in-1 commode. IDT recommending outpatient therapy. Offered options. Pt requesting [facility]. SW to make necessary referrals at [place]. Will ReTeam next week. SW to continue to follow. Sarah Lugo, JENY TELECOMMUNICATIONS LINE INSTALLER
[2022-08-05] MEDS: oxyCODONE HCl Cr 10 MG Tablet PO ×2 (10:18→21:11)
[2022-08-05] MEDS: Gabapentin 300 MG Capsule PO ×3 (10:19→18:10)
[2022-08-05] MEDS: Enoxaparin 30 MG/0.3 ML Syringe SC (10:19)
[2022-08-05] MEDS: Senna/Docusate Sodium 1 Tablet 2 TABLET PO ×2 (10:19→21:10)
--- NOTE | 2022-08-05 12:33 | PN_ITS ---
Subjective Subjective Patient seen, examined on IDT rounds. He has some neuropathic pain right lower quadrant abdomen, which is new, he is able to work thru it, he is already on gabapentin 300mg tidcm, monitor, reassurance for now. Objective Data Objective Data Vital Signs: Vital Signs Temp Pulse Resp BP Pulse Ox O2 Del Method 97.8 F 76 18 125/62 H 96 Room Air 08/05/22 07:21 08/05/22 07:21 08/05/22 07:21 08/05/22 07:21 08/05/22 07:21 08/05/22 07:21 Oxygen Delivery Method Room Air Weight: 100.2 kg Body Mass Index (BMI) 30.8 Intake & Output: Intake and Output for Last 24 Hours 08/03/22 08/04/22 08/05/22 23:59 23:59 23:59 Intake Total 480 / 480 Balance 480 / 480 Lab / Micro Data Result Diagrams: 07/25/22 05:29 07/25/22 05:29 Physical Exam Const alert General Appearance: cooperative HEENT normocephalic Eyes PERRL and EOMs intact bilaterally Neck supple, no JVD and no carotid bruits Resp normal respiratory effort, normal air movement and clear to auscultation bilaterally Cardio regular rate and regular rhythm Cardio Narrative: Back brace. GI normal to inspection, nondistended, normoactive bowel sounds, non-tender and non-distended Extremity normal capillary refill General Extremity: Negative for edema Skin no rashes or lesions noted General Skin Exam: no breakdown Psych affect normal Appearance: appropriate Assessment & Plan Assessment/Plan (1) Debility: (2) Status post lumbar spine surgery for decompression of spinal cord: (3) Thoracic vertebral fracture: (4) Sternal fracture: (5) Burst fracture of lumbar vertebra: (6) Neuropathic pain: (7) Muscle spasm: (8) Nausea: (9) Constipation: PLAN: Plan 31 year old male with below past medical history hospitalized for fall, multi trauma, admitted to for greater than 3 hours rehabilitation, strengthening, prior to discharge home with . * Debility - PT/OT. * Pain - Tylenol 650mg q6h prn, Oxycontin 10mg bid, Oxycodone 5-10mg q4h prn. * Bowel - Miralax 17gm daily, Senna/colace 2 tablets bid, Dulcolax 10mg pr x 1 prn, MOM 30ml po x 1 prn. * DVT prophylaxis - Lovenox 30mg daily. * Neuropathic pain - Gabapentin 300mg tidcm. * Rash - HC cream topical tid prn. * Muscle spasm - Robaxin 1500mg tid. * Nausea - Zofran 4mg q8h prn. Capacity Capacity Assessment Tool Can the patient make a choice & communicate that choice?: Yes Can the patient understand benefits, risks and alternatives?: Yes Can the patient make a logical, rational choice?: Yes Is the choice the patient makes consistent w/ their values?: Yes Is there an impending, emergent risk to the patient?: No Does the patient have an Advance Directive?: No Is there a Surrogate Available?: Yes i.e. HCPOA: Yes i.e. close relative (spouse, child, parent, sibling)?: Yes
[2022-08-05 18:57] VITALS: BP 113/73; PULSE 76; RESP 14; TEMP 36.7; O2SAT 99
[2022-08-05 22:00] VITALS: PULSE 78; RESP 15; O2SAT 99
[2022-08-06] MEDS: oxyCODONE 5 MG Tablet PO ×4 (02:31→19:45)
[2022-08-06] MEDS: Methocarbamol 750 MG Tablet 1500 MG PO ×3 (06:29→21:09)
[2022-08-06] MEDS: Senna/Docusate Sodium 1 Tablet 2 TABLET PO ×2 (08:11→21:08)
[2022-08-06] MEDS: Gabapentin 300 MG Capsule PO ×3 (08:11→17:19)
[2022-08-06] MEDS: Enoxaparin 30 MG/0.3 ML Syringe SC (08:12)
[2022-08-06 08:23] VITALS: BP 104/59; PULSE 68; RESP 16; TEMP 36.4; O2SAT 97
--- NOTE | 2022-08-06 08:39 | PN_ITS ---
Subjective Subjective Patient seen, examined. His right lower quadrant neuropathic pain is tolerable. I offered to increase gabapentin for better control, but Aubrey feels it is not necessary. He continues to progress in therapy, he is benefiting greatly from 3 hours therapy per day. Objective Data Objective Data Vital Signs: Vital Signs Temp Pulse Resp BP Pulse Ox O2 Del Method 97.5 F L 68 16 104/59 L 97 Room Air 08/06/22 08:23 08/06/22 08:23 08/06/22 08:23 08/06/22 08:23 08/06/22 08:23 08/06/22 08:23 Oxygen Delivery Method Room Air Weight: 100.2 kg Body Mass Index (BMI) 30.8 Intake & Output: Intake and Output for Last 24 Hours 08/04/22 08/05/22 08/06/22 23:59 23:59 23:59 Intake Total 1770 / 1770 200 / 200 Output Total 350 / 350 450 / 450 Balance 1420 / 1420 -250 / -250 Lab / Micro Data Result Diagrams: 07/25/22 05:29 07/25/22 05:29 Physical Exam Const alert General Appearance: cooperative HEENT normocephalic Eyes PERRL and EOMs intact bilaterally Neck supple, no JVD and no carotid bruits Resp normal respiratory effort, normal air movement and clear to auscultation bilaterally Cardio regular rate and regular rhythm Cardio Narrative: Back brace. GI normal to inspection, nondistended, normoactive bowel sounds, non-tender and non-distended Back/Spine Back/Spine Narrative: Back brace in place. Extremity normal capillary refill General Extremity: Negative for edema Skin no rashes or lesions noted General Skin Exam: no breakdown Psych affect normal Appearance: appropriate Assessment & Plan Assessment/Plan (1) Debility: (2) Status post lumbar spine surgery for decompression of spinal cord: (3) Thoracic vertebral fracture: (4) Sternal fracture: (5) Burst fracture of lumbar vertebra: (6) Neuropathic pain: (7) Muscle spasm: (8) Nausea: (9) Constipation: PLAN: Plan 31 year old male with below past medical history hospitalized for fall, multi trauma, admitted to for greater than 3 hours rehabilitation, strengthening, prior to discharge home with . * Debility - PT/OT. * Pain - Tylenol 650mg q6h prn, Oxycontin 10mg bid, Oxycodone 5-10mg q4h prn. * Bowel - Miralax 17gm daily, Senna/colace 2 tablets bid, Dulcolax 10mg pr x 1 prn, MOM 30ml po x 1 prn. * DVT prophylaxis - Lovenox 30mg daily. * Neuropathic pain - Gabapentin 300mg tidcm. * Rash - HC cream topical tid prn. * Muscle spasm - Robaxin 1500mg tid. * Nausea - Zofran 4mg q8h prn. Capacity Capacity Assessment Tool Can the patient make a choice & communicate that choice?: Yes Can the patient understand benefits, risks and alternatives?: Yes Can the patient make a logical, rational choice?: Yes Is the choice the patient makes consistent w/ their values?: Yes Is there an impending, emergent risk to the patient?: No Does the patient have an Advance Directive?: No Is there a Surrogate Available?: Yes i.e. HCPOA: Yes i.e. close relative (spouse, child, parent, sibling)?: Yes
[2022-08-06] MEDS: oxyCODONE HCl Cr 10 MG Tablet PO ×2 (10:49→21:08)
--- NOTE | 2022-08-06 11:00 | CASEMGMT ---
Addendum entered by Sarah Lugo 08/08/22 09:57: Followed up with [facility] - they are not in network with pt's insurance and the bedrail is not covered by insurance. Pt will pay out of pocket for that and knows to pick it up at [place]. SW referred to [facility] for 3-in-1 commode - they are in network with insurance and can provide DME. Pt also needs a FWW. Added that to [employer] order. Updated pt. Pt appreciative. Original Note: Social Work Checking in with pt. OT present. OT and pt discussing setting DC date for the weekend since and parents will both be off work to assist with transition. Pt and IDT agree, pt is ready for DC and the remaining days will assist with finalizing therapy goals. Pt is able to get in and out of flat bed but using the bed rail. SW to order at [place]. Pt also requesting elevated toilet seat. Family to bring in FWW to ensure height is sufficient for pt. Pt electing [facility] at [place]. Family can transport. MARIE faxed referral for DME to [facility] and faxed referral to [facility]. Plan: DC home with and family support 08/10, [facility] PT/OT, half bed rail, 3-in-1 commode. JENY SinghW
[2022-08-06 19:30] VITALS: BP 118/70; PULSE 69; RESP 16; TEMP 36.8; O2SAT 97
[2022-08-06 22:00] VITALS: PULSE 73; RESP 16; O2SAT 98
[2022-08-07] MEDS: oxyCODONE 5 MG Tablet PO ×5 (01:47→22:50)
[2022-08-07] MEDS: Methocarbamol 750 MG Tablet 1500 MG PO ×3 (06:34→21:36)
[2022-08-07 08:04] VITALS: BP 123/64; PULSE 70; RESP 16; TEMP 36.2; O2SAT 98
[2022-08-07] MEDS: Senna/Docusate Sodium 1 Tablet 2 TABLET PO ×2 (08:36→21:36)
[2022-08-07] MEDS: Enoxaparin 30 MG/0.3 ML Syringe SC (08:36)
[2022-08-07] MEDS: Gabapentin 300 MG Capsule PO ×3 (08:36→17:43)
[2022-08-07] MEDS: oxyCODONE HCl Cr 10 MG Tablet PO ×2 (10:08→21:35)
--- NOTE | 2022-08-07 10:21 | PN_ITS ---
Subjective Subjective Patient seen, examined. His right lower quadrant, right flank neuropathic pain has improved. He was able to get out of bed, and go to the bathroom himself today. He discussed discharge with Sarah, planning Friday discharge on 08/10/2022, he is looking forward to going [place]. Objective Data Objective Data Vital Signs: Vital Signs Temp Pulse Resp BP Pulse Ox O2 Del Method 97.2 F L 70 16 123/64 H 98 Room Air 08/07/22 08:04 08/07/22 08:04 08/07/22 08:04 08/07/22 08:04 08/07/22 08:04 08/07/22 08:04 Oxygen Delivery Method Room Air Weight: 100.2 kg Body Mass Index (BMI) 30.8 Intake & Output: Intake and Output for Last 24 Hours 08/05/22 08/06/22 08/07/22 23:59 23:59 23:59 Intake Total 1770 / 1770 440 / 440 350 / 350 Output Total 350 / 350 450 / 450 450 / 450 Balance 1420 / 1420 -10 / -10 -100 / -100 Lab / Micro Data Result Diagrams: 07/25/22 05:29 07/25/22 05:29 Physical Exam Const alert General Appearance: cooperative HEENT normocephalic Eyes PERRL and EOMs intact bilaterally Neck supple, no JVD and no carotid bruits Resp normal respiratory effort, normal air movement and clear to auscultation bilaterally Cardio regular rate and regular rhythm Cardio Narrative: Back brace. GI normal to inspection, nondistended, normoactive bowel sounds, non-tender and non-distended Back/Spine Back/Spine Narrative: Back brace in place. Extremity normal capillary refill General Extremity: Negative for edema Skin no rashes or lesions noted General Skin Exam: no breakdown Psych affect normal Appearance: appropriate Assessment & Plan Assessment/Plan (1) Debility: (2) Status post lumbar spine surgery for decompression of spinal cord: (3) Thoracic vertebral fracture: (4) Sternal fracture: (5) Burst fracture of lumbar vertebra: (6) Neuropathic pain: (7) Muscle spasm: (8) Nausea: (9) Constipation: PLAN: Plan 31 year old male with below past medical history hospitalized for fall, multi trauma, admitted to for greater than 3 hours rehabilitation, strengthening, prior to discharge home with . * Debility - PT/OT. * Pain - Tylenol 650mg q6h prn, Oxycontin 10mg bid, Oxycodone 5-10mg q4h prn. * Bowel - Miralax 17gm daily, Senna/colace 2 tablets bid, Dulcolax 10mg pr x 1 prn, MOM 30ml po x 1 prn. * DVT prophylaxis - Lovenox 30mg daily. * Neuropathic pain - Gabapentin 300mg tidcm, improved. * Rash - HC cream topical tid prn. * Muscle spasm - Robaxin 1500mg tid. * Nausea - Zofran 4mg q8h prn. Capacity Capacity Assessment Tool Can the patient make a choice & communicate that choice?: Yes Can the patient understand benefits, risks and alternatives?: Yes Can the patient make a logical, rational choice?: Yes Is the choice the patient makes consistent w/ their values?: Yes Is there an impending, emergent risk to the patient?: No Does the patient have an Advance Directive?: No i.e. HCPOA: Yes i.e. close relative (spouse, child, parent, sibling)?: Yes
[2022-08-07 19:14] VITALS: BP 104/62; PULSE 85; RESP 17; TEMP 36.8; O2SAT 97
[2022-08-07 22:00] VITALS: PULSE 85; RESP 17; O2SAT 97
[2022-08-08] MEDS: oxyCODONE 5 MG Tablet PO ×4 (02:53→18:34)
[2022-08-08] MEDS: Methocarbamol 750 MG Tablet 1500 MG PO ×3 (05:54→20:24)
[2022-08-08 07:27] VITALS: BP 109/56; PULSE 68; RESP 16; TEMP 35.9; O2SAT 100
[2022-08-08] MEDS: Gabapentin 300 MG Capsule PO ×3 (07:43→17:05)
[2022-08-08] MEDS: Senna/Docusate Sodium 1 Tablet 2 TABLET PO ×2 (07:50→20:24)
[2022-08-08] MEDS: Enoxaparin 30 MG/0.3 ML Syringe SC (10:10)
[2022-08-08] MEDS: oxyCODONE HCl Cr 10 MG Tablet PO ×2 (10:11→22:08)
[2022-08-08] MEDS: Acetaminophen 325 MG Tablet 650 MG PO ×2 (14:06→20:24)
--- NOTE | 2022-08-08 18:21 | NURSING ---
Patient educated on weaning down off of oxycodone use prn if able. Patient has taken less oxycodone today than yesterday and verbalizes understanding. Patient will use prn tylenol as well to help with pain management.
[2022-08-08 19:14] VITALS: BP 119/61; PULSE 86; RESP 16; TEMP 36.3; O2SAT 99
--- NOTE | 2022-08-08 19:42 | DS.PCM_ITS ---
Providers Date of Admission: 07/24/22 Reason For Visit: MULTIPLE TRAUMA Diagnosis Discharge Diagnosis (1) Debility: Status: Acute Code(s): R53.81 - Other malaise (2) Status post lumbar spine surgery for decompression of spinal cord: Status: Acute Code(s): Z98.890 - Other specified postprocedural states (3) Thoracic vertebral fracture: Status: Acute Code(s): S22.009A - Unspecified fracture of unspecified thoracic vertebra, initial encounter for closed fracture (4) Sternal fracture: Status: Acute Code(s): S22.20XA - Unspecified fracture of sternum, initial encounter for closed fracture (5) Burst fracture of lumbar vertebra: Status: Acute Code(s): S32.001A - Stable burst fracture of unspecified lumbar vertebra, initial encounter for closed fracture (6) Neuropathic pain: Status: Acute Code(s): M79.2 - Neuralgia and neuritis, unspecified (7) Muscle spasm: Status: Acute Code(s): M62.838 - Other muscle spasm (8) Nausea: Status: Acute Code(s): R11.0 - Nausea (9) Constipation: Status: Acute Code(s): K59.00 - Constipation, unspecified Plan 31 year old male with below past medical history hospitalized for fall, multi trauma, admitted to for greater than 3 hours rehabilitation, strengthening, prior to discharge home with . * Debility - PT/OT. * Pain - Tylenol 650mg q6h prn, Oxycontin 10mg bid, Oxycodone 5-10mg q4h prn. * Bowel - Miralax 17gm daily, Senna/colace 2 tablets bid, Dulcolax 10mg pr x 1 prn, MOM 30ml po x 1 prn. * DVT prophylaxis - Lovenox 30mg daily. * Neuropathic pain - Gabapentin 300mg tidcm, improved. * Rash - HC cream topical tid prn. * Muscle spasm - Robaxin 1500mg tid. * Nausea - Zofran 4mg q8h prn. Medications at Discharge Home Medications acetaminophen 325 mg tablet (Tylenol) 650 mg PO Q6H PRN PRN PAIN #0 tabs 08/08/22 gabapentin 300 mg capsule 300 mg PO TID nerve pain 30 days #90 caps 08/08/22 methocarbamol 750 mg tablet 1,500 mg PO TID muscle spasm 30 days #180 tabs 08/08/22 oxycodone 10 mg tablet,crush resistant,extended release 12 hr (OxyContin) 10 mg PO BID 7 days #14 tabs 08/08/22 oxycodone 5 mg tablet 5 - 10 mg PO Q4H PRN Pain 7 days #42 tabs 08/08/22 sennosides 8.6 mg-docusate sodium 50 mg tablet (Stool Softener-Stimulant Laxative) 2 tab PO BID 30 days #120 tabs 08/08/22 Hospital Course Operations None Procedures None Summary of Care Provided Minutes Spent on Discharge: 35 Hospital Course: 31 year old male with below past medical history hospitalized for fall, multi trauma, admitted to for greater than 3 hours rehabilitation, strengthening, prior to discharge home with . Discharge home with and family support 08/10/2022, [facility], Half bed, 3-in-1 commode. Physical Exam Const alert General Appearance: cooperative HEENT normocephalic Eyes PERRL and EOMs intact bilaterally Neck supple, no JVD and no carotid bruits Chest Chest Narrative: Back brace. Resp normal respiratory effort, normal air movement and clear to auscultation bilaterally Cardio regular rate and regular rhythm GI normal to inspection, nondistended, normoactive bowel sounds, non-tender and no n-distended Extremity normal capillary refill General Extremity: Negative for edema Skin no rashes or lesions noted General Skin Exam: no breakdown Psych affect normal Appearance: appropriate Weight / BMI Weight Weight: 100.2 kg Body Mass Index (BMI) 30.8 ABG / Lab / Microbiology Data Result Diagrams: 07/25/22 05:29 07/25/22 05:29 Indicators for Scoring Admitted with or Primary Diagnosis of CVA/Stroke: No Hx of CVA/Stroke: No D/C Instructions Discharge Diet: No restrictions Discharge Activity: Return to Normal Activity, May Shower and Use Walker May resume sexual activity in: 8 weeks Weight Bearing Status: Weight bearing as tolerated Call your doctor if you observe: Fever of 101 or Higher, Inability to urinate, Inability to have a bowel movement, Shortness of breath, Dizziness, Fainting spells, Swelling in the ankles, Chest pain, Increased palpitations (irregular heartbeat) and Uncontrolled pain Additional Instructions: Discharge home with and family support 08/10/2022, [facility] PT/OT, half bed, 3-in-1 commode. Meaningful Use Info Meaningful Use Diagnoses (Choose all that apply): None applicable Discharge Plan Admission Admit Date/Time: 07/24/22 13:40 Primary Reason for Your Visit: Debility. Attending Provider: Celeste Plata Instructions Additional Instructions / Restrictions: Discharge home with and family support 08/10/2022, [facility] PT/OT, half bed, 3-in-1 commode. Discharge Orders/Prescriptions Prescriptions: New acetaminophen [Tylenol] 325 mg Tablet 650 mg PO Q6H PRN PRN (Reason: PAIN) Qty: 0 0RF oxycodone [OxyContin] 10 mg Tablet,Oral Only,Ext.Rel.12 Hr 10 mg PO BID 7 Days Qty: 14 0RF sennosides-docusate sodium [Stool Softener-Stimulant Laxat] 8.6-50 mg Tablet 2 tab PO BID 30 Days Qty: 120 0RF Continued methocarbamol 750 mg Tablet 1,500 mg PO TID 30 Days Qty: 180 0RF gabapentin 300 mg Capsule 300 mg PO TID 30 Days Qty: 90 0RF oxycodone 5 mg Tablet 5 - 10 mg PO Q4H PRN (Reason: Pain) 7 Days Qty: 42 0RF Rx Instructions: 5mg pain 1-4 10mg pain 5-10 Discontinued ondansetron HCl [Zofran] 4 mg Tablet 4 mg PO Q8H PRN (Reason: nausea/vomiting ) Lovenox 30 mg/0.3 mL Solution 30 mg SUBCUT BID Referrals / Follow Up: jordyn [Other] - 08/19/22 1:00 pm Alis Garcia MD [Med Staff - Active Staff] - 08/13/22 9:30 am Disposition Disposition (needs filled in before D/C Order can be placed): Home, Self Care
[2022-08-09] MEDS: Acetaminophen 325 MG Tablet 650 MG PO ×4 (02:51→21:16)
[2022-08-09] MEDS: Methocarbamol 750 MG Tablet 1500 MG PO ×3 (05:59→21:16)
[2022-08-09] MEDS: oxyCODONE 5 MG Tablet PO ×3 (06:00→21:17)
[2022-08-09] MEDS: Enoxaparin 30 MG/0.3 ML Syringe SC (07:48)
[2022-08-09] MEDS: Gabapentin 300 MG Capsule PO ×3 (07:48→14:59)
[2022-08-09] MEDS: Senna/Docusate Sodium 1 Tablet 2 TABLET PO ×2 (07:48→21:16)
[2022-08-09 08:00] VITALS: BP 108/61; PULSE 66; RESP 16; TEMP 36.4; O2SAT 100
[2022-08-09] MEDS: oxyCODONE HCl Cr 10 MG Tablet PO (10:21)
--- NOTE | 2022-08-09 11:49 | PN_ITS ---
Subjective Subjective Afebrile VSS Maintaining appropriate oxygen saturation on RA Oral intake is good Has lost approximately 7 pounds since admission to rehab. Some of this is fluid. Having regular bowel movements. Discussed with nursing - no problems that need addressed. Has been taking Oxycontin 10 mg BID since admission to rehab and 10 mg of Oxycodone 4 X's a day on average. Oxycodone was decreased to 5 mg every 4 hours as needed yesterday. Reviewed the PT/OT notes Medication list reviewed. Reviewed lab from admission to rehab. No lab since. He is waking up in pain every 4 hours at night despite the OxyContin. The pain is described as burning and electric. Just touching the skin of the RLQ of the abd and the R lateral hip/thigh is very painful. the pain radiates ar0und the R hip area and groin from the back. He is also still having some pain in the sterum with using his arms to push himself around in the bed and with deep breathing. Denies cough, SOB, hiccups, dysuria, constipation, Nausea, calf pain. He is now starting to get feeling back in the lower abd and the R hip area. Objective Data Objective Data Vital Signs: Vital Signs Temp Pulse Resp BP Pulse Ox O2 Del Method 97.5 F L 66 16 108/61 100 Room Air 08/09/22 08:00 08/09/22 08:00 08/09/22 08:00 08/09/22 08:00 08/09/22 08:00 08/09/22 08:00 Oxygen Delivery Method Room Air Weight: 221 lb 1.978 oz Body Mass Index (BMI) 30.8 Intake & Output: Intake and Output for Last 24 Hours 08/07/22 08/08/22 08/09/22 23:59 23:59 23:59 Intake Total 950 / 950 600 / 600 360 / 360 Output Total 850 / 850 675 / 675 Balance 100 / 100 -75 / -75 360 / 360 Lab / Micro Data Result Diagrams: 07/25/22 05:29 07/25/22 05:29 Physical Exam Const alert, oriented x3 and no apparent distress Constitutional Narrative: Lying in bed watching TV when U entered the room and he appeared in no acute distress. General Appearance: cooperative and well developed HEENT moist oral mucous membranes Eyes PERRL and EOMs intact bilaterally Neck No nuchal rigidity Resp clear to auscultation bilaterally Resp Narrative: No conversational dyspnea. Effort and Inspection: Negative for tachypneic, respiratory distress, labored or uses accessory muscles Cardio regular rate, regular rhythm, S1 normal heart sound, S2 normal heart sound, no murmurs, no rub and no gallops GI soft to palpation, non-tender and non-distended GI Narrative: No guarding with palpation. Hypersensitive to touch in the RLQ from the midline to the R hip to the LS spine. No changes in the skin. No change in the temperature of the skin. BS's are diminished but, present in all quadrants. Extremity normal capillary refill Extremity Narrative: No calf pain, intact sensation to both feet. General Extremity: Negative for cyanosis or edema Skin General Skin Exam: no breakdown Wound Narrative: Incisions are healing with no erythema, dehiscence, purulent DC or increased warmth to touch. Neuro CN's II-XII intact bilaterally Neuro Narrative: sensory changes (hyperaesthesia) in the RLQ of the abd, R lateral hip, groin, and R buttock.......previously numb at admission to rehab. Psych thought process normal, cooperative and affect normal Appearance: appropriate Assessment & Plan Assessment/Plan (1) Physical debility: (2) Fall: PLAN: From a 25Ft tree stand while hunting with friends. (3) Lumbar canal stenosis: PLAN: due to burst Fx of L1 with large retropulsed fragment into the spinal canal causing critical cord cmpression. (4) Status post lumbar spine surgery for decompression of spinal cord: (5) Thoracic vertebral fracture: (6) Fusion of lumbar spine: (7) Conus medullaris syndrome: (8) Sternal fracture: (9) Burst fracture of lumbar vertebra: (10) Acute blood loss anemia: PLAN: Stable and improving. Up to 12.6 prior to DC from rehab. (11) Neuropathic pain: PLAN: Now that feeling is returning to the R flank, groin, R hip area he is having increased burning, neuropathic pain. Will Increase the Gabapentin to 600 mg at Bedtime and 300 mg BID during the day. Will DC the oxycontin at HS tonight and continue the daytime dose. Will give 650 mg of Tylenol with wth Oxycodone for break through pain. Will likely DC on Percocet, Gabapentin and Oxycontin 10 mg Q AM. He will follow up with Dr. Mccoy for pain management next week. Has an appt with Dr. Garcia this coming Friday. Will see him in the AM tomorrow to see how the night went with the changes in the medications. PLAN: Plan DC home tomorrow. 3 in 1 commode and front wheeled walker from [facility] at discharge for PT/OT Charges/Coding Visit Charges Inpatient E&M: 10274 Subs Hosp L2
[2022-08-09 13:08] LABS: Hematocrit 37.8 % (40-54); Hemoglobin 12.6 g/dL (13.0-16.5)
[2022-08-09 13:41] LABS: ALB/GLOB Ratio 0.8 RATIO (0.9-2.4); AST(SGOT) 15 U/L (15-37); Alanine Aminotransfer ALT/SGPT 36 U/L (16-61); Albumin, Serum 3.4 g/dL (3.2-5.0); Alkaline Phosphatase 146 U/L (45-117); Anion Gap 5 (5-15); BUN 16 mg/dL (7-18); Calcium,Total 9.3 mg/dL (8.5-10.1); Chloride 102 mmol/L (98-107); EST Glomerular Filtration Rate 92 mL/min (>60); Est Glom Filt Rate - Afr Amer 112 mL/min (>60); Estimated Creatinine Clearance 117.48 ml/min; Glucose 113 mg/dL (74-106); Potassium 3.9 mmol/L (3.5-5.1); Protein, Total 7.4 g/dL (6.4-8.2); Sodium Level 137 mmol/L (136-145)
[2022-08-09] MEDS: Gabapentin 600 MG Tablet PO (19:55)
[2022-08-09 22:00] VITALS: BP 107/61; PULSE 74; RESP 16; TEMP 36.7; O2SAT 98
[2022-08-10] MEDS: oxyCODONE 5 MG Tablet PO ×2 (03:10→10:50)
[2022-08-10] MEDS: Methocarbamol 750 MG Tablet 1500 MG PO (06:10)
[2022-08-10] MEDS: oxyCODONE HCl Cr 10 MG Tablet PO (06:10)
[2022-08-10] MEDS: Gabapentin 300 MG Capsule PO (06:57)
[2022-08-10 07:25] VITALS: BP 115/59; PULSE 54; RESP 14; TEMP 36.6; O2SAT 97
[2022-08-10] MEDS: Senna/Docusate Sodium 1 Tablet 2 TABLET PO (08:27)
[2022-08-10] MEDS: Acetaminophen 325 MG Tablet 650 MG PO (08:27)
[2022-08-10] MEDS: Enoxaparin 30 MG/0.3 ML Syringe SC (08:28)
[2022-08-10 11:30] VITALS: BP 115/59; PULSE 54; RESP 14; TEMP 36.6; O2SAT 97
--- NOTE | 2022-08-10 11:30 | NURSING ---
Discharge to home with and verbalized all understanding.
== END 2022-08-10 11:30 | disposition home or self-care (01) | DRG 560 ==
PROVIDERS: Admitting Provider Internal Medicine; Visit Provider Internal Medicine
DX: S22.20XD Unspecified fracture of sternum, subsequent encounter for fracture with routine healing (principal); G95.81 Conus medullaris syndrome; M62.838 Other muscle spasm; G62.9 Polyneuropathy, unspecified; K59.00 Constipation, unspecified; W17.89XD Other fall from one level to another, subsequent encounter; S22.088D Other fracture of T11-T12 vertebra, subsequent encounter for fracture with routine healing; S32.011D Stable burst fracture of first lumbar vertebra, subsequent encounter for fracture with routine healing; Z98.1 Arthrodesis status; Z79.01 Long term (current) use of anticoagulants; Z87.891 Personal history of nicotine dependence; Z79.899 Other long term (current) drug therapy
CPT/HCPCS: 36415; 80053; 83735; 84100; 85014; 85018; 85025; 97110; 97116; 97162; 97166; 97530; 97535; 97537; 97802; 99251; J7030; G0463

== ENCOUNTER → 2022-08-19 | Outpatient (CLI) | payer OTHER, BC, SELFPAY ==
[2022-08-19 13:07] LABS: Amphetamine Urine VISTA NEGATIVE (<1000 ng/mL); Barbiturate Urine VISTA NEGATIVE (< 200 ng/mL); Benzodiazepine Urine VISTA NEGATIVE (< 200 ng/mL); Cocaine Urine VISTA NEGATIVE (< 300 ng/mL); Ecstacy Urine VISTA NEGATIVE (< 500 ng/mL); Methadone Urine VISTA NEGATIVE (< 300 ng/mL); PCP Urine VISTA NEGATIVE (< 25 ng/mL); THC Urine VISTA POSITIVE (< 50 ng/mL); Vista UDS pH Range 6
== END | disposition home or self-care (01) ==
PROVIDERS: PCP Internal Medicine; Referring Provider Anesthesiology Pain Medicine; Visit Provider Anesthesiology Pain Medicine
DX: F11.20 Opioid dependence, uncomplicated (principal)
CPT/HCPCS: 80307

== ENCOUNTER 2022-10-17 16:00 | Outpatient (RCR) | payer OTHER, BC, SELFPAY ==
--- NOTE | 2022-08-12 19:30 | HP.PTEVAL_ITS ---
Patient's Visit Information CECILLE DORANTES is a 31 year old M referred to Physical Therapy by Dr. Albert Ferrara MD with a diagnosis of MULTIPLE TRAUMA. Date of Evaluation: 08/12/22 Physical Therapist: William Medley PT, Cert MDT, OCS - Visit Plan Frequency: 2x /Week Duration: 8WEEKS Plan: TLSO BRACE ON ALL TIME NO BENDING/TWISTING. PT INTERVETIONS PROGRESSIVE GAIT/BALANCE TRAINING, STRENGTHNEING BLE ,CORE STRENGTHNEING ,POSTURAL EX'S ,FUNCTIONAL STRENGTRHENING AND ENDURANCE PROGRAM - Subjective This 31 y/o male physical therapy with multiple trauma . This patient fell out of tree stand ~ 25 ft on 07/20 which patient directly landed on back. Patient was taken to [facility] then was life flighted by [employer] to [facility] . MRI and x-rays showed burst fracture L1 causing severe and critical stenosis T11-12 fracture . Patient was able to move legs caused paralysis .Patient had caused non sternal fracture. Thus patient underwent s/p L1 corpectomy and posterior fusion T11-12 cage/plates with benedicto and strews on 07/21/[address] Ford. Patient had to removed right lower ribs . Patient was to Rehab 4th floor at [facility] on 07/24/22 . Patient was placed TLSO brace on all times okay to remove with remove for bathing. Patient restriction no bending /twisting and lifting 10-15 #.Patient d/c to home 07/11/22 with fww . Initially, patient was unable to walk with FWW . Patient lives 1 story with 2 steps . Tub/shower with chair and hand grab rails. Patient has paresthesia right thigh and improve abdominal . Although pain is worsening . Patient plans to RTD surgeon 08/19 and plans to see pain management. Pain meds oxytocin slow release and long release, gabapentin, Neurontin . Patient pain located sternum ,right hip and low back. Patient needs assist with ADLS with dressing ,bathing . Patient symptoms affects sleeping. Symptoms increase with walking /standing affects QOL and ADLS'. Patient goal to get back to normal. SOCIAL: 2 children 3 year and 6 month. VOCATION: [employer] - Pain Bilateral Back Pain Intensity (Out of 10): 5 Pain Intensity Range: 10 Comment: with meds Right Hip Pain Intensity (Out of 10): 5 Pain Intensity Range: 10 - Objective POSTURE: mild forward posture ,TLSO brace intact. INSCION: well appropriate back and lateral side sterry strips intact no drainage. NEURO: c/o paresthesia right thigh/side light touch intact. PALPATION: tender LS /paraspinals. GAIT: ambulates with fww with TLSO brace slow justice reciprocal pattern. MMT( peak force) : quads right 15.5 ,left 35.6 ,hamstrings left 26.4 ,right 18.9 ,hip flexion right 16.3,left 25.7 ,hip abduction 0, right left ,13.6. LUMBAR ROM: NT. FLEXABLITY : hamstrings mod tight. TRANSFERS : sit-stand mod I. BED MOBILITY: supine-sit mod I - Special Tests L/S Slump test left side: Negative L/S Slump test right side: Negative L/S Left Straight Leg Raise: Negative L/S Right Straight Leg Raise: Negative - Balance/Special Test Scores CATSIB Score (Max score 120 seconds): 25 Oswestry Low Back Score: 40 - Goals Goal 1:: I with HEP for lumbar ,balance and legs Goal Time Frame: 6-8 Weeks Goal 2:: Patient to demonstrate 50-60% improvement with decrease pain and improve function Goal Time Frame: 6-8 Weeks Goal 3:: Patient to increase strength BLE peak force by 10 to improve function and gait Goal Time Frame: 6-8 Weeks Goal 4:: Patient to ambulate with improved justice and reciprocal pattern no device Goal Time Frame: 6-8 Weeks Goal 5:: Patient to improve CATSIBE BY 10 POINTS or > to improve balance and good - dynamic balance. Goal Time Frame: 6-8 Weeks Goal 6:: Patient to improve back oswestry score by 10 points to improve QOL and function. Goal Time Frame: 6-8 Weeks - Rehabilitation Potential Physical Therapy Diagnosis: This patient underwent SP L1 ,T11-T12 fusion plates/cage from L1 burst fracture with pain ,decrease gait, balance ,weakness right > left ,and function/ADLS thus will benefit from skilled PT Rehabilitation Potential: Fair - Anticipated Interventions Patient/Client Instruction: Educate patient on: Condition, Plan of Care For the Purpose of:: To decrease pain, To increase ROM, To improve muscle performance and motor function, To improve ability to perform ADL's, To increase tolerance to activity/condition/position, To improve performance and independence with ADL's, To improve ability of physical actions for home/community/work/leisure, To improve gait and locomotor functions, To improve health of tissue, To decrease soft tissue restriction, To increase flexibility/ROM, To improve endurance, To improve tolerance to ADL's Therapeutic Exercise to Include: Strength training, Power training, Endurance training, Balance training, Body mechanics, Postural training, Flexibilty training, Gait and locomotor training, Active ROM, Dynamic Lumbar Stabilization Comment: QUAS/HAMS/HIP ESPECIALLY RIGHT SIDE For the Purpose of:: To decrease pain, To increase ROM, To improve muscle performance and motor function, To improve ability to perform ADL's, To increase tolerance to activity/condition/position, To improve performance and independence with ADL's, To improve ability of physical actions for home/communi ty/work/leisure, To improve gait and locomotor functions, To improve health of tissue, To decrease soft tissue restriction, To increase flexibility/ROM, To improve endurance, To improve balance, To improve tolerance to ADL's Thank you for the opportunity to evaluate your patient. For Medicare and Medicare HMO plans, please review the plan of care and approve it. It will need to be FAXED BACK to us at [phone] for Medicare purposes. For Medicare only, by signing this I certify the plan of care. Please let me know if there are questions or concerns regarding this plan of care. Physician Signature: Date:
--- NOTE | 2022-08-21 08:50 | HP.OTEVAL_ITS ---
Patient's Visit Information CECILLE DORANTES is a 31 year old M, referred to Occupational Therapy by Dr. Albert Ferrara MD, with a diagnosis of muti trauma/ multiple fx. Date of Evaluation: 08/20/22 Occupational Therapist: Chioma Carranza, FABRICER/Rayna, CHT - Subjective This 31 y/o male physical therapy with multiple trauma . This patient fell out of tree stand ~ 25 ft on 07/20 which patient directly landed on back. Patient was taken to [facility] then was life flighted by [employer] to [facility] . MRI and x-rays showed burst fracture L1 causing severe and critical stenosis T11-12 fracture . Patient states the left side of his hip/abdomen is hyper sensitive and has an area that is numb. Patient had sternal fracture. Thus patient underwent s/p L1 corpectomy and posterior fusion T11-12 cage/plates with benedicto and strews on 07/21/[address] Ford. Patient had to removed right lower ribs . Patient was to Rehab 4th floor at [facility] on 07/24/22 . Patient was placed TLSO brace on all times okay to remove with remove for bathing. Patient restriction no bending /twisting and lifting 10-15 #.Patient d/c to home 07/11/22 with [facility]ww . [facility] . Patient lives 1 story with 2 steps. Patient has paresthesia right thigh and improve around his abdominal (now hypersensitive) . Although pain is worsening . Patient did RTD surgeon 08/19 and did see pain management yesterday- Surgeon states all looks good at this time but did not lift any of his precautions. Pain meds oxytocin slow release and long release, gabapentin, Neurontin . Patient pain located sternum ,right hip and low back. Patient needs assist with ADLS with dressing ,bathing . Patient symptoms affects sleeping. Symptoms increase with walking /standing affects QOL and ADLS'. Patient goal to get back to normal. SOCIAL: 2 children 3 year and 6 month. 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 Tub/shower with chair and hand grab rails. assisting with ADls and performing all daily tasks. 2 children 3 year and 6 month. VOCATION: [employer] working [email or web address]- worked for 4 years doing this job working 55-60 hours a week-. 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 - Pain sternal pain 4 Pain Intensity Range: 6 - ROM Shoulder: right shoulder 155 left 155 Elbow: right WNL/WNL - Strength Shoulder: right 6# left 7.4# Elbow: right 9# left 12# Truck Bench Mechanic: right 140# left 130# Lateral Pinch: right 20# left 22# Tripod Pinch: right 18# left 16# Strength Comments: pt continues to demo healing of sternum- and has pain with ROM and use of UE for ADL and daily tasks. - Sensation Sensation Comments: denies in UE and hands - Quick DASH-Disab of Arm,Shoulder& Hand Quick DASH Score: 58.9275 - Goals Goal:: pt will demo preak force on Fit2 at 30# with no pain greater than 1/10 by d.c Goal:: pt will demo full bilateral shoulder ROM to 170* by d.c Goal:: pt will report no pain greater than 1/10 with use of BUE with ADls, strengthening ex by d/c Goal:: when precautions are lifted by surgeon- pt will report the ability to perform home mtg and yard work tasks at REGIS level by d.c Goal:: pt will demo safe understanding of using ww at counter top heights while keeping precautions and demo good safety jeanette, - Rehabilitation General Assessment: This 31 year old male s/p 4 weeks and 2 days from spine fusion- arrives in TLSO brace and ambulation with WW. Pt demo limited functional strength of UB to perform ADls and IADls at this time Pt would benefit from skilled OT services 1-2x week for 12 weeks to return pts strength, ed. on safe functional mobility with use of ww while keeping precautions, to return pt to a PLOF. Today therapist ed, pt on UB isometric exercise- gave handout and encouraged pt to perform light daily tasks at putting dishes away- washing dishes and folding laundry while sitting or standing per his comfort. pt demo understanding and agree to POC. Rehabilitation Potential: Excellent - Anticipated Interventions Strengthening, Education re assistive Equipment, Education re Diagnosis - Visit Plan Frequency: 1-2x /Week Duration: 6 Weeks TEXT: Thank you for the opportunity to evaluate your patient. For Medicare and Medicare HMO plans, please review the plan of care and approve it. It will need to be FAXED BACK to us at [phone] for Medicare purposes. Please let me know if there are questions or concerns regarding this plan of care. Physician Signature: Date:
--- NOTE | 2022-09-30 16:48 | OTREVAL_ITS ---
Dr. Albert Ferrara MD, It has been my pleasure to treat CECILLE DORANTES over the last 11 visits for muti trauma/ multiple fx. Please see the progress note below for an update on the occupational therapy plan of care! Subjective: Patient arrived on time. Back still tight and stiff in the R hip and lower back. Completion of re-eval this date. Able to get self dressed with modified indep. Wearing TLSO as needed for support. No longer using cane, indep with mobility. F/U with surgeon on 10/14. Objective/Function: R hand dominant. R pole peeling machine operator: 121. L pole peeling machine operator: 127. 3 pt pinch R 22, L 24. 2 pt pinch R 18, L 20. lateral pinch R 24, L 28. shoulder flex: R 21.1; L 20.7. shoulder ex: R 19.4; L 18.1. abduction: R 23.7; L 19.9. a dduction: R 17.7; L 21.1. elbow flex: R 19.9; L 27.8. elbow ext R: 19.7; L 21.8. ROM WNL Plan Frequency: 1-2x /Week Duration: 6 Weeks Plan: Continue POC with scheduled appts through the end of the year 2021 with focus on progressing upper body strength. Follow-up with pt s/p f/u with surgeon on 10/14. 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 Goals - Goals Goal Progress: Goal Met Goal Progress: Goal Met Goal Progress: Goal Met Patient Goals: Regain Mobility, Regain Strength, Decrease Pain, Be More Independent in ADLS, Resume Former Household Responsibilities (Cooking,Cleaning,Yard, etc.), Resume Hobbies Goal:: pt will demo preak force on Fit2 at 30# with no pain greater than 1/10 by d.c Goal:: pt will demo full bilateral shoulder ROM to 170* by d.c (GOAL MET) Goal:: pt will report no pain greater than 1/10 with use of BUE with ADls, strengthening ex by d/c (GOAL MET) Goal:: NEW GOAL: Patient will improve upper body strength measured by dynamometer of incr in at least 5# of force for bilateral shoulder flexion and abduction. Goal:: when precautions are lifted by surgeon- pt will report the ability to perform home mtg and yard work tasks at REGIS level by darby (GOAL MET) Goal:: pt will demo safe understanding of using ww at counter top heights while keeping precautions and demo good safety jeanette, (GOAL MET) Anticipated Interventions Anticipated Interventions: Strengthening, Education re assistive Equipment, Education re Diagnosis Please do not hesitate to contact me at [phone] by phone or if you have questions or concerns regarding this new plan of care! Sincerely, Kenia Hoffman
--- NOTE | 2022-10-10 09:59 | HP.OTREVAL ---
Dr. Albert Ferrara MD, It has been my pleasure to treat CECILLE DORANTES over the last 12 visits for muti trauma/ multiple fx. Please see the progress note below for an update on the occupational therapy plan of care! Subjective: Pt stated he is doing well with stuff at home; would like to continue w/ OT to get stronger. Likes the gym eq. pt would like to get more strength as his surgeon clears his lifting restrictions to so he can return to his PLOF. Hunting, carrying 35/40# or more without difficulty. therapist ed. pt the surgeon will decide on when to lift restriction as to not compromise his repair. pt demo understanding. Objective/Function: R hand dominant. R judicial assistant: 121. L judicial assistant: 127. 3 pt pinch R 22, L 24. 2 pt pinch R 18, L 20. lateral pinch R 24, L 28. shoulder flex: R 21.1; L 20.7. shoulder ex: R 19.4; L 18.1. abduction: R 23.7; L 19.9. adduction: R 17.7; L 21.1. elbow flex: R 19.9; L 27.8. elbow ext R: 19.7; L 21.8. ROM WNL Plan Frequency: 1-2x /Week Duration: 6 Weeks Plan: Continue POC with scheduled appts through the end of the year 2021 with focus on progressing upper body strength. Follow-up with pt s/p f/u with surgeon on 10/14. 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 Goals - Goals Goal Progress: Goal Met Goal Progress: Goal Met Goal Progress: Goal Met Patient Goals: Regain Mobility, Regain Strength, Decrease Pain, Be More Independent in ADLS, Resume Former Household Responsibilities (Cooking,Cleaning,Yard, etc.), Resume Hobbies Goal:: pt will demo peak force on Fit2 at 35# with no pain greater than 1/10 by d.c. pt will demo increase in BUE endurance to tolerate Physical strengthening for greater than 25# with no report of pain/fatigue indicating increase in functionals strength and endurance to perform IADLS at PLOF. Goal:: pt will demo full bilateral shoulder ROM to 170* by d.c (GOAL MET) Goal:: pt will report no pain greater than 1/10 with use of BUE with ADls, strengthening ex by d/c (GOAL MET) Goal:: NEW GOAL: Patient will improve upper body strength measured by dynamometer of incr in at least 5# of force for bilateral shoulder flexion and abduction. Goal:: when precautions are lifted by surgeon- pt will report the ability to perform home mtg and yard work tasks at REGIS level by d.c (GOAL MET) Goal:: pt will demo safe understanding of using ww at counter top heights while keeping precautions and demo good safety jeanette, (GOAL MET) Anticipated Interventions Anticipated Interventions: Strengthening, Education re assistive Equipment, Education re Diagnosis Please do not hesitate to contact me at [phone] by phone or if you have questions or concerns regarding this new plan of care! Sincerely, Chioma Carranza, OTR/L, CHT
--- NOTE | 2023-01-30 10:41 | HP.PT.NRP ---
CECILLE DORANTES was seen in my office for initial evaluation on 08/12/22. The following Plan of Care was established for this patient: Initial Frequency: 2x /Week Initial Duration: 8WEEKS Patient/Client Instruction: Educate patient on: Condition, Plan of Care For the Purpose of:: To decrease pain, To increase ROM, To improve muscle performance and motor function, To improve ability to perform ADL's, To increase tolerance to activity/condition/position, To improve performance and independence with ADL's, To improve ability of physical actions for home/community/work/leisure, To improve gait and locomotor functions, To improve health of tissue, To decrease soft tissue restriction, To increase flexibility/ROM, To improve endurance, To improve tolerance to ADL's Therapeutic Exercise to Include: Strength training, Power training, Endurance training, Balance training, Body mechanics, Postural training, Flexibilty training, Gait and locomotor training, Active ROM, Dynamic Lumbar Stabilization For the Purpose of:: To decrease pain, To increase ROM, To improve muscle performance and motor function, To improve ability to perform ADL's, To increase tolerance to activity/condition/position, To improve performance and independence with ADL's, To improve ability of physical actions for home/community/work/leisure, To improve gait and locomotor functions, To improve health of tissue, To decrease soft tissue restriction, To increase flexibility/ROM, To improve endurance, To improve balance, To improve tolerance to ADL's This patient was last seen in our office . Pertinent comments regarding their Physical therapy will appear below: Patient seen for multiple trauma s/p surgery . Patient doing well RTW d/c brace no restrictions thus d/c At this point I will be discontinuing this patient from physical therapy. I would be happy to see this patient again in the future if found appropriate by the physician. Thank you! William Medley, PT, Cert MDT, OCS Balance/Gait/Functional tests - Balance/Special Test Scores CATSIB Score (Max score 120 seconds): 25 Oswestry Low Back Score: 40
== END 2022-10-17 19:00 | disposition home or self-care (01) ==
LOC: OT 16:00
PROVIDERS: PCP Internal Medicine; Referring Provider Family Medicine Geriatric Medicine; Visit Provider Family Medicine Geriatric Medicine
DX: T14.90XD Injury, unspecified, subsequent encounter (principal)
CPT/HCPCS: 97110; 97161; 97166; 97530